=== PATIENT | male | born 1985 | race Two or more races ===

== ENCOUNTER 2016-08-16 09:06 | Emergency (ER) | payer OTHER ==
[~2016-08-16 09:06] MED LIST: ALEV220T26 PO; FLAGY PO; PEPT262S PO; cipro PO; hyoscyamine SL; mylicon PO; tylenol PO
--- NOTE | 2016-08-16 09:32 | EDDOCDS ---
Physician Documentation [facility] Name: Adrian Avelar Age: 30 yrs Sex: Male : 1985 Arrival Date: 08/16/2016 Time: 09:06 Bed Triage 3 [facility] Disposition: 08/16/16 09:26 Discharged to Home/Self Care. Impression: Sprain of unspecified site of right knee - possible lateral meniscal injury. - Condition is Stable. - Discharge Instructions: Elastic Bandage and RICE, Crutch Use, Knee Sprain. - Prescriptions for Naprosyn 500 mg Oral Tablet - take 1 tablet by ORAL route 2 times per day take with food; 30 tablet. - Medication Reconciliation, Local Pharmacy Hours form. - Follow up: Keyur Rosenthal; When: As needed; Reason: Further diagnostic work-up, Recheck today's complaints. Follow up: Leslie Hobbs, [facility]; When: Call to arrange an appointment; Reason: Recheck today's complaints, obtain referral. - Problem is new. - Symptoms are unchanged. - Notes: weight bearing, activity as tolerated. use aldo wrap as needed for support. call to arrange follow up and further imaging as needed Historical: - Allergies: Some antibiotic that was given here (Rash); - Home Meds: 1. none - PMHx: none; - PSHx: none; - Social history: Smoking status: Patient states was never smoker of tobacco. No barriers to communication noted, The patient speaks fluent Italian, Speaks appropriately for age. - Family history: Not pertinent. - : The pt / caregiver states he / she is not on anticoagulants. Home medication list is obtained from the patient. - Exposure Risk Screening:: None identified. Vital Signs: 08/16 09:09 BP 139 / 86; Pulse 65; Resp 20; Temp 96.6(O); Pulse Ox 100% on R/A; Weight 74.84 kg / elp 164.99 lbs (R); Height 5 ft. 10 in. (177.80 cm) (R); 09:09 Body Mass Index 23.67 (74.84 kg, 177.80 cm) elp MDM: 09:25 Aldo Wrap ordered. ar2 09:25 Crutches ordered. ar2 09:31 Financial registration complete. lg Signatures: Amy Ross, Jeremiah Martin lg RN RN mlb1 Julieth WenRN RN ck1 [employer], DAYANA ANNE ar2 MTDD
--- NOTE | 2016-08-16 09:32 | EDDOCDS ---
Nurse's Notes [facility] Name: Adrian Avelar Age: 30 yrs Sex: Male : 1985 Arrival Date: 08/16/2016 Time: 09:06 Bed Triage 3 [facility] Diagnosis: Sprain of unspecified site of right knee-possible lateral meniscal injury Presentation: 08/16 09:11 Presenting complaint: Patient states: Injured right knee during a run yesterday. Adult mlb1 Sepsis Screening: The patient does not have new or worsening altered mentation. Patient's respiratory rate is less than 22. Systolic blood pressure is greater than 100. Patient has a qSOFA score of 0- Negative Sepsis Screen. Suicide/Homicide risk assessment- the patient denies having any suicidal and/or homicidal ideations and does not present with any other emotional, behavioral or mental health complaints. 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 Transition of care: patient was not received from another setting of care. 09:11 Acuity: DAMON Level 4 mlb1 09:11 Method Of Arrival: Walkin/Carried/Asstd mlb1 Triage Assessment: 09:12 General: Appears in no apparent distress, Behavior is appropriate for age, cooperative. mlb1 Pain: Location: right knee Pain currently is 8 out of 10 on a pain scale. HIV screening NA for this visit Offered previously. Historical: - Allergies: Some antibiotic that was given here (Rash); - Home Meds: 1. none - PMHx: none; - PSHx: none; - Social history: Smoking status: Patient states was never smoker of tobacco. No barriers to communication noted, The patient speaks fluent Kazakh, Speaks appropriately for age. - Family history: Not pertinent. - : The pt / caregiver states he / she is not on anticoagulants. Home medication list is obtained from the patient. - Exposure Risk Screening:: None identified. Screenin: Screening information is obtained from the patient. Fall risk: No risks identified. ck1 Assistance ADL's: requires no assistance with activities of daily living. Abuse/DV Screen: The patient / caregiver reports he/she is: not in a situation that causes fear, pain or injury. Nutritional screening: No deficits noted. Advance Directives: Currently, there is no health care proxy. home support is adequate. Assessment: 09:28 General: Appears in no apparent distress, comfortable, Behavior is appropriate for age, ck1 cooperative. Pain: Location: right knee Pain currently is 8 out of 10 on a pain scale. Aggravated by weight bearing. Derm: Skin is intact, is healthy with good turgor, Skin is pink, warm & dry. Musculoskeletal: Range of motion intact in all extremities. 09:30 General: Appears in no apparent distress, comfortable, Behavior is appropriate for age, mlb1 cooperative. Pain: Location: right knee Pain currently is 8 out of 10 on a pain scale. Musculoskeletal: Circulation, motion, and sensation intact Range of motion intact in all extremities. Vital Signs: 09:09 BP 139 / 86; Pulse 65; Resp 20; Temp 96.6(O); Pulse Ox 100% on R/A; Weight 74.84 kg elp (R); Height 5 ft. 10 in. (177.80 cm) (R); 09:09 Body Mass Index 23.67 (74.84 kg, 177.80 cm) [facility] Vitals: 09:09 Log In Time: August 16, 2016 at 09:05. elp ED Course: 09:08 Patient visited by Halie Moore PCA. elp 09:08 [facility] Phys[facility]. elp 09:08 Patient moved to Waiting elp 09:09 Patient moved to Pre RCE elp 09:11 Patient visited by Jeremiah Rebollar RN. mlb1 09:12 Patient visited by Jeremiah Rebollar RN. mlb1 09:12 Triage Initiated mlb1 09:12 Patient moved to Triage 3 mlb1 09:13 [employer] [facility] ar2 09:13 Neela Elizondo MD is Attending Physician. ar2 09:13 Patient visited by [employer] PA-C. ar2 09:25 Keyur Rosenthal is Referral Physician. ar2 09:26 Leslie Hobbs [facility] is Referral Physician. ar2 09:27 No IV's were initiated during this patient's visit. No procedures done that require ck1 assistance. Aldo wrap to right knee. Patient has positive distal pulse, brisk capillary refill, and positive sensation after application. 09:28 The patient / caregiver is instructed regarding the plan of care and ED course. ck1 09:31 Patient visited by Jeremiah Rebollar, RN. mlb1 Order Results: There are currently no results for this order. Outcome: 09:26 Discharge ordered by Provider. ar2 09:28 Discharge Assessment: Patient awake, alert and oriented x 3. No cognitive and/or ck1 functional deficits noted. Patient verbalized understanding of disposition instructions. patient administered narcotics - no. The following High Risk Discharge criteria are identified: None. Discharged to home ambulatory, with crutches, with friend. Condition: stable. Discharge instructions given to patient, Instructed on discharge instructions, follow up and referral plans. medication usage, crutch walking. No special radiology studies were completed. Property :Personal belongings accompany Pt. 09:31 Patient left the ED. mlb1 Signatures: Jeremiah Rebollar, RN RN mlb1 Julieth Wen RN RN ck1 [employer], PA-C PA-C ar2 Halie Moore, EXECUTIVE DIRECTOR OF NURSING EXECUTIVE DIRECTOR OF NURSING elp ANGELA
--- NOTE | 2016-08-18 10:32 | EDDOCDS ---
Physician Documentation [facility] Name: Adrian Avelar Age: 30 yrs Sex: Male : 1985 Arrival Date: 08/16/2016 Time: 09:06 Bed Triage 3 [facility]: 08/16/16 09:26 Discharged to Home/Self Care. Impression: Sprain of unspecified site of right knee - possible lateral meniscal injury. - Condition is Stable. - Discharge Instructions: Elastic Bandage and RICE, Crutch Use, Knee Sprain. - Prescriptions for Naprosyn 500 mg Oral Tablet - take 1 tablet by ORAL route 2 times per day take with food; 30 tablet. - Medication Reconciliation, Local Pharmacy Hours form. - Follow up: Keyur Rosenthal; When: As needed; Reason: Further diagnostic work-up, Recheck today's complaints. Follow up: Leslie Hobbs, [facility]; When: Call to arrange an appointment; Reason: Recheck today's complaints, obtain referral. - Problem is new. - Symptoms are unchanged. - Notes: weight bearing, activity as tolerated. use aldo wrap as needed for support. call to arrange follow up and further imaging as needed Historical: - Allergies: Some antibiotic that was given here (Rash); - Home Meds: 1. none - PMHx: none; - PSHx: none; - Social history: Smoking status: Patient states was never smoker of tobacco. No barriers to communication noted, The patient speaks fluent Armenian, Speaks appropriately for age. - Family history: Not pertinent. - : The pt / caregiver states he / she is not on anticoagulants. Home medication list is obtained from the patient. - Exposure Risk Screening:: None identified. Vital Signs: 08/16 09:09 BP 139 / 86; Pulse 65; Resp 20; Temp 96.6(O); Pulse Ox 100% on R/A; Weight 74.84 kg / elp 164.99 lbs (R); Height 5 ft. 10 in. (177.80 cm) (R); 09:09 Body Mass Index 23.67 (74.84 kg, 177.80 cm) elp MDM: 09:25 Aldo Wrap ordered. ar2 09:25 Crutches ordered. ar2 09:31 Financial registration complete. lg 09:38 [facility] Payment Agreement was scanned into [employer] and attached to record. lg 08/18 08:30 T-Sheet-- Draft Copy was scanned into [employer] and attached to record. lg Signatures: Amy Ross, Richie Reg lg Jeremiah Reobllar RN RN mlb1 Julieth Wen RN RN ck1 [employer] PA-C PA-C ar2 The chart was reviewed and I authenticate all verbal orders and agree with the evaluation and treatment provided.Attachments: 08/16 09:38 [facility] Payment Agreement lg 08/18 08:30 T-Sheet-- Draft Copy lg Chart Complete MTDD
--- NOTE | 2016-08-18 10:33 | EDDOCDS ---
Physician Documentation [facility] Name: Adrian Avelar Age: 30 yrs Sex: Male : 1985 Arrival Date: 08/16/2016 Time: 09:06 Bed Triage 3 [facility] Disposition: 08/16/16 09:26 Discharged to Home/Self Care. Impression: Sprain of unspecified site of right knee - possible lateral meniscal injury. - Condition is Stable. - Discharge Instructions: Elastic Bandage and RICE, Crutch Use, Knee Sprain. - Prescriptions for Naprosyn 500 mg Oral Tablet - take 1 tablet by ORAL route 2 times per day take with food; 30 tablet. - Medication Reconciliation, Local Pharmacy Hours form. - Follow up: Keyur Rosenthal; When: As needed; Reason: Further diagnostic work-up, Recheck today's complaints. Follow up: Leslie Hobbs, [facility]; When: Call to arrange an appointment; Reason: Recheck today's complaints, obtain referral. - Problem is new. - Symptoms are unchanged. - Notes: weight bearing, activity as tolerated. use aldo wrap as needed for support. call to arrange follow up and further imaging as needed Historical: - Allergies: Some antibiotic that was given here (Rash); - Home Meds: 1. none - PMHx: none; - PSHx: none; - Social history: Smoking status: Patient states was never smoker of tobacco. No barriers to communication noted, The patient speaks fluent Frisian, Speaks appropriately for age. - Family history: Not pertinent. - : The pt / caregiver states he / she is not on anticoagulants. Home medication list is obtained from the patient. - Exposure Risk Screening:: None identified. Vital Signs: 08/16 09:09 BP 139 / 86; Pulse 65; Resp 20; Temp 96.6(O); Pulse Ox 100% on R/A; Weight 74.84 kg / elp 164.99 lbs (R); Height 5 ft. 10 in. (177.80 cm) (R); 09:09 Body Mass Index 23.67 (74.84 kg, 177.80 cm) elp MDM: 09:25 Aldo Wrap ordered. ar2 09:25 Crutches ordered. ar2 09:31 Financial registration complete. lg 09:38 [facility] Payment Agreement was scanned into [employer] and attached to record. lg 08/18 08:30 T-Sheet-- Draft Copy was scanned into [employer] and attached to record. lg Signatures: Amy Ross, Richie Reg lg Jeremiah Rebollar RN RN mlb1 Julieth Wen RN RN ck1 [employer] PA-C PA-C ar2 The chart was reviewed and I authenticate all verbal orders and agree with the evaluation and treatment provided.Attachments: 08/16 09:38 [facility] Payment Agreement lg 08/18 08:30 T-Sheet-- Draft Copy lg Chart Complete MTDD
--- NOTE | 2016-08-18 10:33 | EDDOCDS ---
Nurse's Notes [facility] Name: Adrian Avelar Age: 30 yrs Sex: Male : 1985 Arrival Date: 08/16/2016 Time: 09:06 Bed Triage 3 [facility] Diagnosis: Sprain of unspecified site of right knee-possible lateral meniscal injury Presentation: 08/16 09:11 Presenting complaint: Patient states: Injured right knee during a run yesterday. Adult mlb1 Sepsis Screening: The patient does not have new or worsening altered mentation. Patient's respiratory rate is less than 22. Systolic blood pressure is greater than 100. Patient has a qSOFA score of 0- Negative Sepsis Screen. Suicide/Homicide risk assessment- the patient denies having any suicidal and/or homicidal ideations and does not present with any other emotional, behavioral or mental health complaints. 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 Transition of care: patient was not received from another setting of care. 09:11 Acuity: DAMON Level 4 mlb1 09:11 Method Of Arrival: Walkin/Carried/Asstd mlb1 Triage Assessment: 09:12 General: Appears in no apparent distress, Behavior is appropriate for age, cooperative. mlb1 Pain: Location: right knee Pain currently is 8 out of 10 on a pain scale. HIV screening NA for this visit Offered previously. Historical: - Allergies: Some antibiotic that was given here (Rash); - Home Meds: 1. none - PMHx: none; - PSHx: none; - Social history: Smoking status: Patient states was never smoker of tobacco. No barriers to communication noted, The patient speaks fluent Serbian, Speaks appropriately for age. - Family history: Not pertinent. - : The pt / caregiver states he / she is not on anticoagulants. Home medication list is obtained from the patient. - Exposure Risk Screening:: None identified. Screenin: Screening information is obtained from the patient. Fall risk: No risks identified. ck1 Assistance ADL's: requires no assistance with activities of daily living. Abuse/DV Screen: The patient / caregiver reports he/she is: not in a situation that causes fear, pain or injury. Nutritional screening: No deficits noted. Advance Directives: Currently, there is no health care proxy. home support is adequate. Assessment: 09:28 General: Appears in no apparent distress, comfortable, Behavior is appropriate for age, ck1 cooperative. Pain: Location: right knee Pain currently is 8 out of 10 on a pain scale. Aggravated by weight bearing. Derm: Skin is intact, is healthy with good turgor, Skin is pink, warm & dry. Musculoskeletal: Range of motion intact in all extremities. 09:30 General: Appears in no apparent distress, comfortable, Behavior is appropriate for age, mlb1 cooperative. Pain: Location: right knee Pain currently is 8 out of 10 on a pain scale. Musculoskeletal: Circulation, motion, and sensation intact Range of motion intact in all extremities. Vital Signs: 09:09 BP 139 / 86; Pulse 65; Resp 20; Temp 96.6(O); Pulse Ox 100% on R/A; Weight 74.84 kg elp (R); Height 5 ft. 10 in. (177.80 cm) (R); 09:09 Body Mass Index 23.67 (74.84 kg, 177.80 cm) [facility] Vitals: 09:09 Log In Time: August 16, 2016 at 09:05. elp ED Course: 09:08 Patient visited by Halie Moore PCA. elp 09:08 [facility]. elp 09:08 Patient moved to Waiting elp 09:09 Patient moved to Pre RCE elp 09:11 Patient visited by Jeremiah Rebollar RN. mlb1 09:12 Patient visited by Jeremiah Rebollar RN. mlb1 09:12 Triage Initiated mlb1 09:12 Patient moved to Triage 3 mlb1 09:13 [employer] PA[facility]C [facility]. ar2 09:13 Neela Elizondo MD is Attending Physician. ar2 09:13 Patient visited by [employer] PA-C. ar2 09:25 Keyur Rosenthal is Referral Physician. ar2 09:26 Leslie Hobbs [facility] is Referral Physician. ar2 09:27 No IV's were initiated during this patient's visit. No procedures done that require ck1 assistance. Aldo wrap to right knee. Patient has positive distal pulse, brisk capillary refill, and positive sensation after application. 09:28 The patient / caregiver is instructed regarding the plan of care and ED course. ck1 09:31 Patient visited by Jeremiah Rebollar, RN. mlb1 09:38 [facility] Payment Agreement was scanned into [employer] and attached to record. lg 08/18 08:30 T-Sheet-- Draft Copy was scanned into [employer] and attached to record. lg Order Results: There are currently no results for this order. Outcome: 08/16 09:26 Discharge ordered by Provider. ar2 09:28 Discharge Assessment: Patient awake, alert and oriented x 3. No cognitive and/or ck1 functional deficits noted. Patient verbalized understanding of disposition instructions. patient administered narcotics - no. The following High Risk Discharge criteria are identified: None. Discharged to home ambulatory, with crutches, with friend. Condition: stable. Discharge instructions given to patient, Instructed on discharge instructions, follow up and referral plans. medication usage, crutch walking. No special radiology studies were completed. Property :Personal belongings accompany Pt. 09:31 Patient left the ED. b1 Signatures: Amy Ross, Reg Reg Jeremiah Rebollar, RN RN mlb1 Julieth Wen RN RN ck1 [employer], DAYANA PAJanuary ar2 Halie Moore, MAUREEN PROBATION AGENT elp Chart Complete MTDD
== END 2016-08-16 09:31 | disposition home or self-care (01) ==
LOC: M ED 09:06
DX: S83.421A Sprain of lateral collateral ligament of right knee, initial encounter (principal); X58.XXXA Exposure to other specified factors, initial encounter; Y92.89 Other specified places as the place of occurrence of the external cause; Y93.89 Activity, other specified; Y99.8 Other external cause status; Z88.1 Allergy status to other antibiotic agents